=== PATIENT | female | born 1975 | race Caucasian/White ===

== ENCOUNTER → 2024-09-28 12:12 | Outpatient (REF) | payer OTHER, SELFPAY | LOC: WDC 12:12 | PROVIDERS: ATTENDING PHYSICIAN Student in an Organized Health Care Education/Training Program; FAMILY PHYSICIAN Internal Medicine | DX: Z12.31 Encounter for screening mammogram for malignant neoplasm of breast (principal) | CPT/HCPCS: 77063; 77067 ==

== ENCOUNTER 2025-02-12 06:21 | Day surgery (SDC) | payer OTHER, SELFPAY | END 2025-02-12 16:55 | disposition home or self-care (01) | LOC: GI 06:21 | PROVIDERS: ATTENDING PHYSICIAN Internal Medicine Gastroenterology | DX: Z12.11 Encounter for screening for malignant neoplasm of colon (principal); K57.30 Diverticulosis of large intestine without perforation or abscess without bleeding; D12.2 Benign neoplasm of ascending colon | CPT/HCPCS: 45385; 88305 ==

== ENCOUNTER → 2025-09-29 13:25 | Outpatient (REF) | payer OTHER, SELFPAY | LOC: WDC 13:25 | PROVIDERS: ATTENDING PHYSICIAN Internal Medicine | DX: Z12.31 Encounter for screening mammogram for malignant neoplasm of breast (principal) | CPT/HCPCS: 77063; 77067 ==